=== PATIENT | female | born 1965 | race Caucasian/White ===

== ENCOUNTER → 2024-08-20 | Outpatient (CLI) | payer OTHER ==
--- NOTE | 2024-08-20 19:44 | MR ---
EXAMINATION TYPE: MR cervical spine wo con DATE OF EXAM: 08/20/2024 COMPARISON: None HISTORY: Neck, shoulder, arm pain-right side CONTRAST: Performed utilizing 0 mL intravenous Gadavist gadolinium contrast. TECHNIQUE: Multiplanar multiecho imaging on a 3.0 Martine magnet is performed through the cervical spin e. FINDINGS: The craniovertebral junction is normal. Vertebral body alignment is kyphotic centered at C 4-5. T1-2: No focal disc herniation or significant disc bulge. No spinal canal stenosis or neural foramina l C7-T1: No focal disc herniation or significant disc bulge is evident. No spinal canal stenosis or n eural foraminal stenosis is present. C6-7: Central mild bulge is present. No cord contact or spinal canal stenosis is present. Neural fora men are patent. C5-6: There is a small right paracentral disc herniation extending towards the right lateral directio n. Minimal cord contact on the right paracentral region may be present. Right foraminal narrowing is present. No AP spinal canal stenosis. C4-5: Broad-based disc bulge is present with moderate anterior thecal sac compression. Cord contact m ay be present. Some cord deformity may be present in the right paracentral region. No signal abnormal ity is evident.. C3-4: No focal disc herniation or significant disc bulge is evident. No spinal canal stenosis or jaqueline ral foraminal stenosis is present. C2-3: No focal disc herniation or significant disc bulge is evident. No spinal canal stenosis or jaqueline ral foraminal stenosis is present. IMPRESSION: 1. A based disc bulging C4-5 C5-6. This may have cord contact in the right paracentral region at C5-6 . 2. Broad central mild disc bulge C6-7 without cord contact or spinal canal stenosis [facility], Workstation: [facility], 08/20/2024 7:42 PM
== END | disposition home or self-care (01) ==
LOC: RADMRIMAIN 16:54
PROVIDERS: ATTEND Orthopaedic Surgery Sports Medicine
DX: M50.122 Cervical disc disorder at C5-C6 level with radiculopathy (principal)
CPT/HCPCS: 72141

== ENCOUNTER → 2024-11-12 | Outpatient (CLI) | payer OTHER ==
--- NOTE | 2024-11-12 11:16 | XR ---
EXAMINATION TYPE: XR lumbosacral spine min 4V DATE OF EXAM: 11/12/2024 10:32 AM COMPARISON: None. CLINICAL INDICATION: Female, 59 years old with history of [id number] LBP, pain TECHNIQUE: Frontal, lateral, and bilateral oblique images of the lumbar spine are obtained. FINDINGS: There are 5 lumbar type vertebral bodies identified. The lumbar spine shows straightened alignment. Vertebral body heights are within normal limits. Moderate disc space narrowing and anteri or spurring at L2-L3 level. Mild to moderate anterior spurring at L1-L2 level. The oblique images radha ear within normal limits. Cholecystectomy clips are present in the overlying soft tissue. IMPRESSION: As above. [facility], , 11/12/2024 11:14 AM
== END | disposition home or self-care (01) ==
LOC: RADXRYALE 10:01
PROVIDERS: ATTEND Internal Medicine
DX: M54.51 Vertebrogenic low back pain (principal); Z90.49 Acquired absence of other specified parts of digestive tract
CPT/HCPCS: 72110